=== PATIENT | female | born 1965 | race Caucasian/White ===

== ENCOUNTER 2017-02-10 12:11 | Emergency (ER) | payer OTHER, MEDICARE ==
[~2017-02-10] VITALS: Ht 162.6 cm; Wt 48.0 kg
[~2017-02-10 12:11] MED LIST: B COTAB7 PO; CALC-65 PO; CALC0.5C6 PO; CENTTAB16 PO; CREON24 PO; CYAN100025 IM; DIAZ5TAB PO; DULO60 PO; ESTR30V PV; FOLI1TAB PO; FURO80TA3 PO; KLOR20TA6 PO; LACT10SO27 PO; LORTA10 PO; MAGN400C2 PO; PHYT5TAB2 PO; PROM25TA5 PO; PROT40TA PO; TRAZ150T75 PO; [UNRECOGNIZED DRUG - CODE] PO
[2017-02-10 12:12] VITALS: BP 105/71; PULSE 67; RESP 16; TEMP 97.8; O2SAT 98
[2017-02-10] MEDS ORDERED: IOHEXOL 350 MG/ML 10 ML VIAL (for RAD DIAG) IVCONTRAST ONE (12:12)
[2017-02-10] MEDS ORDERED: LACT10SO PO (15:26)
[2017-02-10] MEDS ORDERED: E 101000 PO (15:26)
[2017-02-10] MEDS ORDERED: [UNRECOGNIZED DRUG - OTHER] PO (15:26)
[2017-02-10] MEDS ORDERED: FOLI800T PO (15:26)
[2017-02-10] MEDS ORDERED: POTA-163 PO (15:26)
[2017-02-10] MEDS ORDERED: CALC0.5C6 PO (15:26)
[2017-02-10] MEDS ORDERED: DIAZ5TAB PO (15:26)
[2017-02-10] MEDS ORDERED: PRAV40TA2 PO (15:26)
[2017-02-10] MEDS ORDERED: ERGO1CAP30 PO (15:26)
[2017-02-10] MEDS ORDERED: PROM25TA10 PO (15:26)
[2017-02-10] MEDS ORDERED: CALC1TAB16 PO (15:26)
[2017-02-10] MEDS ORDERED: COEN1CAP19 PO (15:26)
[2017-02-10] MEDS ORDERED: METO50TA11 PO (15:26)
[2017-02-10] MEDS ORDERED: ASPI81CH (15:26)
[2017-02-10] MEDS ORDERED: ESCI20TA PO (15:26)
[2017-02-10] MEDS ORDERED: FURO1TAB60 PO (15:26)
[2017-02-10] MEDS ORDERED: PANT40TA3 PO (15:26)
[2017-02-10] MEDS ORDERED: HYDR-3583 PO (15:26)
[2017-02-10] MEDS ORDERED: TRAZ50TA12 PO (15:26)
[2017-02-10] MEDS ORDERED: SODIUM CHLOR 0.9% 1000 ML INJ 1,000 ML IV SCH (15:36)
[2017-02-10] MEDS ORDERED: diphenhydrAMINE HCL 50 MG/ML VIAL IV PUSH STA (15:37)
[2017-02-10] MEDS ORDERED: SODIUM CHLORIDE 0.9% FLUSH 10 ML FLUSH IV FLUSH PRN (15:45)
[2017-02-10] MEDS ORDERED: PROCHLORPERAZINE INJ 10 MG/2 ML VIAL IV PUSH ONE (15:45)
--- NOTE | 2017-02-10 15:48 | PD ---
HPI Chief Complaint: Abdominal Pain Time Seen by Provider: 15:05 Travel History International Travel<30 days: No Contact w/Intl Traveler<30days: No Traveled to known affect area: No History of Present Illness HPI So 51 year-old woman who presents to the emergency department complaining of nausea is been ongoing for the past month or so. She went and saw Dr. Claudio today. She is followed with him in the past. She states she's been losing weight niece and her to the emergency department for a CAT scan and for lab work. She had a recent endoscopy which was reportedly unrevealing although they were unable to cannulate her bile ducts and they were apparently looking for choledocholithiasis. She's had her gallbladder out. She is a history of a "duodenal switch "procedure for weight loss. She currently uses Phenergan as needed for nausea, was given a prescription for Tigan today also. History Past Medical History Narrative Medical GERD History of "duodenal switch" in 2004 or so, status post revision complicated by bowel perforation. History of cholecystectomy. Tetanus Vaccination: > 5 Years Influenza Vaccination: Yes Menopausal: Yes : 2 Para: 1 Social History Alcohol Use: No (PT DENIES) Tobacco Use: Yes (PT IS TRYING TO QUIT, LAST PATCH USE 06/06) Allergies-Medications (Allergen,Severity, Reaction): Coded Allergies: Sulfa (Sulfonamide Antibiotics) (Verified Allergy, Severe, Hives, 02/10/17 ) ondansetron (Verified Allergy, Severe, Hives, 02/10/17) bee venom protein (honey bee) (Verified Allergy, Intermediate, HIVES, ) ciprofloxacin (Verified Adverse Reaction, Severe, Hives, 02/10/17) levofloxacin (Verified Adverse Reaction, Severe, Hives, 02/10/17) lorazepam (Verified Adverse Reaction, Severe, ITCHING, 02/10/17) morphine (Verified Adverse Reaction, Severe, HIVES, 02/10/17) oxycodone (Verified Adverse Reaction, Severe, 02/10/17) KARL [employer]A'S SYNDROME sulfamethoxazole (Unverified Adverse Reaction, Severe, Hives, 12/09/16) trimethoprim (Verified Adverse Reaction, Severe, Hives, 02/10/17) Uncoded Allergies: SEVOFLOURINE (Allergy, Severe, Anaphylaxis, 06/09/13) GENERAL ANESTHETIC Reported Meds & Prescriptions Reported Meds & Active Scripts Active Reported [id number] (Vitamin A) 10,000 Unit Cap 1 Cap PO DAILY Escitalopram (Escitalopram Oxalate) 20 Mg Tab 20 Mg PO DAILY Diazepam 5 Mg Tab 5 Mg PO TID PRN Ergocalciferol 50,000 Unit Cap 50,000 Units PO EVERY OTHER DAY Co Q10 (Ubidecarenone) 100 Mg Capsule 1 Tab PO DAILY E 1000 (Vitamin E) 1,000 Unit Cap 1 Tab PO DAILY Calcitriol 0.5 Mcg Cap 0.5 Mcg PO DAILY Metoprolol Succinate ER 24 HR (Metoprolol Succinate) 50 Mg Tab 50 Mg PO DAILY Phenergan (Promethazine HCl) 25 Mg Tablet 25 Mg PO Q6H PRN Pravastatin 40 Mg Tab 40 Mg PO DAILY Lasix (Furosemide) 40 Mg Tab 40 Mg PO DAILY Aspirin 81 Mg Chew 81 Mg ONCE Trazodone (Trazodone HCl) 50 Mg Tab 50 Mg PO HS Calcium Citrate-Vitamin D 315-200 Mg-Unit Tab 1 Tab PO BID Hydrocodone-Acetaminophen 10-325 mg Tab 1 Tab PO Q6H PRN Folic Acid 0.8 Mg Tab 1,000 Mcg PO DAILY Potassium Chloride ER (Potassium Chloride) 20 Meq Tab 20 Meq PO DAILY Lactulose Liq (Lactulose) 10 Gm/15 Ml Soln 30 Ml PO HS Pantoprazole (Pantoprazole Sodium) 40 Mg Tab 40 Mg PO DAILY Review of Systems Except as stated in HPI: all other systems reviewed are Neg Physical Exam Narrative GENERAL: Well-appearing 51 year-old woman, no acute distress. SKIN: Focused skin assessment warm/dry. HEAD: Atraumatic. Normocephalic. EYES: Pupils equal and round. No scleral icterus. No injection or drainage. ENT: No nasal bleeding or discharge. Mucous membranes pink and moist. NECK: Trachea midline. No JVD. CARDIOVASCULAR: Regular rate and rhythm. No murmur appreciated. RESPIRATORY: No accessory muscle use. Clear to auscultation. Breath sounds equal bilaterally. GASTROINTESTINAL: Abdomen is flat and soft. She seems to be volitionally sort of sucking it and also. She has large midline incision. There is no firmness distention or other abnormality. MUSCULOSKELETAL: No obvious deformities. No edema. NEUROLOGICAL: Awake and alert. No obvious cranial nerve deficits. Motor grossly within normal limits. Normal speech. PSYCHIATRIC: Appropriate mood and affect; insight and judgment normal. Data Data Last Documented VS Vital Signs Date Time Temp Pulse Resp B/P (MAP) Pulse Ox O2 Delivery O2 Flow Rate FiO2 02/10/17 15:50 17 99 Room Air 02/10/17 12:12 97.8 67 Orders Orders Complete Blood Count With Diff (02/10/17 15:36) Comprehensive Metabolic Panel (02/10/17 15:36) Lipase (02/10/17 15:36) Urinalysis - C+S If Indicated (02/10/17 15:36) Ct Abd/Pel W Iv Contrast(Rout) (02/10/17 15:36) Iv Access Insert/Monitor (02/10/17 15:36) Ecg Monitoring (02/10/17 15:36) Oximetry (02/10/17 15:36) Sodium Chlor 0.9% 1000 Ml Inj (Ns 1000 M (02/10/17 15:36) Sodium Chloride 0.9% Flush (Ns Flush) (02/10/17 15:45) Prochlorperazine Inj (Compazine Inj) (02/10/17 15:45) Diphenhydramine Inj (Benadryl Inj) (02/10/17 15:37) Oral Contrast - Adult (02/10/17 15:42) Diatrizoate Liq ( Gastroview Liq) (02/10/17 15:53) Urine Culture (02/10/17 15:39) Labs Laboratory Tests Test 02/10/17 15:39 White Blood Count 5.5 TH/MM3 Red Blood Count 5.01 MIL/MM3 Hemoglobin 11.8 GM/DL Hematocrit 37.7 % Mean Corpuscular Volume 75.2 FL Mean Corpuscular Hemoglobin 23.6 PG Mean Corpuscular Hemoglobin Concent 31.4 % Red Cell Distribution Width 18.7 % Platelet Count 183 TH/MM3 Mean Platelet Volume 9.3 FL Neutrophils (%) (Auto) 40.6 % Lymphocytes (%) (Auto) 46.8 % Monocytes (%) (Auto) 8.7 % Eosinophils (%) (Auto) 3.2 % Basophils (%) (Auto) 0.7 % Neutrophils # (Auto) 2.2 TH/MM3 Lymphocytes # (Auto) 2.6 TH/MM3 Monocytes # (Auto) 0.5 TH/MM3 Eosinophils # (Auto) 0.2 TH/MM3 Basophils # (Auto) 0.0 TH/MM3 CBC Comment DIFF FINAL Differential Comment Urine Color LIGHT-YELLOW Urine Turbidity CLEAR Urine pH 7.0 Urine Specific [place] 1.006 Urine Protein NEG mg/dL Urine Glucose (UA) NEG mg/dL Urine Ketones NEG mg/dL Urine Occult Blood NEG Urine Nitrite POS Urine Bilirubin NEG Urine Urobilinogen LESS THAN 2.0 MG/DL Urine Leukocyte Esterase TRACE Urine RBC LESS THAN 1 /hpf Urine WBC 2 /hpf Urine Squamous Epithelial Cells 1 /hpf Urine Bacteria OCC /hpf Microscopic Urinalysis Comment CULTURE INDICATED Blood Urea Nitrogen 11 MG/DL Creatinine 0.96 MG/DL Random Glucose 74 MG/DL Total Protein 6.8 GM/DL Albumin 3.5 GM/DL Calcium Level 9.1 MG/DL Alkaline Phosphatase 101 U/L Aspartate Amino Transf (AST/SGOT) 63 U/L Alanine Aminotransferase (ALT/SGPT) 62 U/L Total Bilirubin 0.3 MG/DL Sodium Level 136 MEQ/L Potassium Level 3.9 MEQ/L Chloride Level 100 MEQ/L Carbon Dioxide Level 31.6 MEQ/L Anion Gap 4 MEQ/L Estimat Glomerular Filtration Rate 61 ML/MIN Lipase 97 U/L [facility] Medical Decision Making Medical Screen Exam Complete: Yes Emergency Medical Condition: Yes Interpretation(s) LABS: CBC is unremarkable. Microcytic indices. CMP with mildly elevated AST and ALT. Lipase is normal. UA is unremarkable. Differential Diagnosis Dehydration, weakness, nausea, failure to thrive, gastritis, gastroparesis, obstruction, mass, other Narrative Course Medical decision-making 51-year-old woman presents to the emergency department complaining of nausea ongoing for several months. History of chronic GI problems also. Complicated surgical history. She looks well. She does appear to be talking her abdomen and were try to examine her which is a little bit bizarre. This disappears with distraction or abdominal contour appears more normal. Nonetheless we'll check labs and CT scan, discharge for outpatient follow-up. Karl Sinha MD Feb 10, 2017 15:48
[2017-02-10 15:50] VITALS: RESP 17; O2SAT 99
[2017-02-10] MEDS ORDERED: DIATRIZOATE MEGLUM/DIATRIZOATE SOD 9 ML CUP ONE (15:53)
[2017-02-10 16:13] LABS: AUTOMATED NEUTROPHIL # 2.2 TH/MM3 (1.8-7.7); BACTERIA, URINE OCC /hpf; BASOPHIL % 0.7 % (0.0-2.0); BLOOD, URINE NEG (NEG); COMMENT (UR) CULTURE INDICATED; CULTURE IF INDICATED CULTURE INDICATED; EOSINOPHIL # 0.2 TH/MM3 (0-0.4); EOSINOPHIL % 3.2 % (0.0-4.0); GLUCOSE,URINE NEG (NEG); HEMATOCRIT 37.7 % (35.0-46.0); HEMO FLAGS DIFF FINAL; KETONE, URINE NEG (NEG); LYMPH % 46.8 % (9.0-44.0); LYMPHOCYTE # 2.6 TH/MM3 (1.0-4.8); MEAN CELL VOLUME 75.2 FL (80.0-100.0); MEAN CORPUSCULAR HEMOGLOBIN 23.6 PG (27.0-34.0); MEAN CORPUSCULAR HGB CONC 31.4 % (32.0-36.0); MONO % 8.7 % (0.0-8.0); NEUT % 40.6 % (16.0-70.0); NITRITE,URINE POS (NEG); PLATELET COUNT 183 TH/MM3 (150-450); RED BLOOD COUNT 5.01 MIL/MM3 (4.00-5.30); RED CELL DISTRIBUTION WIDTH 18.7 % (11.6-17.2); SQUAMOUS EPITHELIAL CELL URINE 1 /hpf (0-5); URINE COLOR LIGHT-YELLOW (YELLW/STRAW); WHITE BLOOD COUNT 5.5 TH/MM3 (4.0-11.0)
[2017-02-10 16:22] LABS: ALT (GPT) 62 U/L (10-53); ANION GAP 4 MEQ/L (5-15); AST (GOT) 63 U/L (15-37); BICARBONATE 31.6 MEQ/L (21.0-32.0); BLOOD UREA NITROGEN 11 MG/DL (7-18); CHLORIDE 100 MEQ/L (98-107); GLOMERULAR FILTRATION RATE 61 ML/MIN (>89); POTASSIUM 3.9 MEQ/L (3.5-5.1); SODIUM (NA) 136 MEQ/L (136-145)
[2017-02-10 16:25] LABS: ALKALINE PHOSPHATASE 101 U/L (45-117); TOTAL BILIRUBIN ADULT 0.3 MG/DL (0.2-1.0)
--- NOTE | 2017-02-10 17:47 | RADRPT ---
EXAM DATE/TIME: 02/10/2017 17:32 [place] COMPARISON: No previous studies available for comparison. INDICATIONS : Diffuse upper abdomen pain for one month. IV CONTRAST: 78 cc Omnipaque 350 (iohexol) IV ORAL CONTRAST: Prescribed oral contrast ingested. RADIATION DOSE: 4.53 CTDIvol (mGy) MEDICAL HISTORY : Cardiovascular disease. Hepatitis B. Renal calculi. SURGICAL HISTORY : Appendectomy. Cholecystectomy.Tubal ligation. ENCOUNTER: Initial ACUITY: 1 month PAIN SCALE: 4/10 LOCATION: Bilateral upper quadrant TECHNIQUE: Volumetric scanning of the abdomen and pelvis was performed. Using automated exposure control and ad justment of the mA and/or kV according to patient size, radiation dose was kept as low as reasonably achievable to obtain optimal diagnostic quality images. DICOM format image data is available electro nically for review and comparison. FINDINGS: The lung base is are clear. There is no pericardial effusion. The spleen is unremarkable. Minimal pancreatic calcifications are evident. There is symmetrical renal function The adrenal glands are unremarkable Region the cecum and terminal ileum are unremarkable Pelvis there is distended bladder. Uterus is small. There is no free air or obstruction Bowel gas pattern is nonspecific most suggestive of an ileus with generalized dilatation of both larg e and small bowel. I do not see inflammatory changes. I do not see free air. CONCLUSION: Nonspecific bowel gas pattern most suggestive of an ileus with dilatation of large and small bowel No pancreatic calcification suggesting previous pancreatitis Evidence for previous mid abdominal surgery I do not see an abscess or free air.. Mayo Rivers MD FACR on February 10, 2017 at 17:43 Board Certified Radiologist. This report was verified electronically.
[2017-02-10] MEDS ORDERED: MACR100C2 PO (18:07)
[2017-02-10] MEDS ORDERED: REGL10TA5 PO (18:07)
--- NOTE | 2017-02-10 18:07 | PD ---
Data Data Last Documented VS Vital Signs Date Time Temp Pulse Resp B/P (MAP) Pulse Ox O2 Delivery O2 Flow Rate FiO2 02/10/17 15:50 17 99 Room Air 02/10/17 12:12 97.8 67 Orders Orders Complete Blood Count With Diff (02/10/17 15:36) Comprehensive Metabolic Panel (02/10/17 15:36) Lipase (02/10/17 15:36) Urinalysis - C+S If Indicated (02/10/17 15:36) Ct Abd/Pel W Iv Contrast(Rout) (02/10/17 15:36) Iv Access Insert/Monitor (02/10/17 15:36) Ecg Monitoring (02/10/17 15:36) Oximetry (02/10/17 15:36) Sodium Chlor 0.9% 1000 Ml Inj (Ns 1000 M (02/10/17 15:36) Sodium Chloride 0.9% Flush (Ns Flush) (02/10/17 15:45) Prochlorperazine Inj (Compazine Inj) (02/10/17 15:45) Diphenhydramine Inj (Benadryl Inj) (02/10/17 15:37) Oral Contrast - Adult (02/10/17 15:42) Diatrizoate Liq ( Gastroview Liq) (02/10/17 15:53) Urine Culture (02/10/17 15:39) Iohexol 350 Inj (Omnipaque 350 Inj) (02/10/17 12:12) Labs Laboratory Tests Test 02/10/17 15:39 White Blood Count 5.5 TH/MM3 Red Blood Count 5.01 MIL/MM3 Hemoglobin 11.8 GM/DL Hematocrit 37.7 % Mean Corpuscular Volume 75.2 FL Mean Corpuscular Hemoglobin 23.6 PG Mean Corpuscular Hemoglobin Concent 31.4 % Red Cell Distribution Width 18.7 % Platelet Count 183 TH/MM3 Mean Platelet Volume 9.3 FL Neutrophils (%) (Auto) 40.6 % Lymphocytes (%) (Auto) 46.8 % Monocytes (%) (Auto) 8.7 % Eosinophils (%) (Auto) 3.2 % Basophils (%) (Auto) 0.7 % Neutrophils # (Auto) 2.2 TH/MM3 Lymphocytes # (Auto) 2.6 TH/MM3 Monocytes # (Auto) 0.5 TH/MM3 Eosinophils # (Auto) 0.2 TH/MM3 Basophils # (Auto) 0.0 TH/MM3 CBC Comment DIFF FINAL Differential Comment Urine Color LIGHT-YELLOW Urine Turbidity CLEAR Urine pH 7.0 Urine Specific [place] 1.006 Urine Protein NEG mg/dL Urine Glucose (UA) NEG mg/dL Urine Ketones NEG mg/dL Urine Occult Blood NEG Urine Nitrite POS Urine Bilirubin NEG Urine Urobilinogen LESS THAN 2.0 MG/DL Urine Leukocyte Esterase TRACE Urine RBC LESS THAN 1 /hpf Urine WBC 2 /hpf Urine Squamous Epithelial Cells 1 /hpf Urine Bacteria OCC /hpf Microscopic Urinalysis Comment CULTURE INDICATED Blood Urea Nitrogen 11 MG/DL Creatinine 0.96 MG/DL Random Glucose 74 MG/DL Total Protein 6.8 GM/DL Albumin 3.5 GM/DL Calcium Level 9.1 MG/DL Alkaline Phosphatase 101 U/L Aspartate Amino Transf (AST/SGOT) 63 U/L Alanine Aminotransferase (ALT/SGPT) 62 U/L Total Bilirubin 0.3 MG/DL Sodium Level 136 MEQ/L Potassium Level 3.9 MEQ/L Chloride Level 100 MEQ/L Carbon Dioxide Level 31.6 MEQ/L Anion Gap 4 MEQ/L Estimat Glomerular Filtration Rate 61 ML/MIN Lipase 97 U/L [facility] Supervised Visit with KIRILL: No Narrative Course The patient was initially evaluated by the previous provider and signed out to me at the beginning of my shift pending CT abdomen pelvis and disposition. See his note for further details. Briefly this is a 51-year-old female with history of duodenal switch complicated by perforated bowel about 6 years ago, here for evaluation of persistent nausea and vomiting over the last month. She has been evaluated by pad hand Dr. Mao, and was advised to present to the emergency department today for lab work and CT abdomen pelvis. Initial vital signs show heart rate 67, blood pressure 105/71, pulse ox 98% on room air, oral temp of 97.8F. CBC shows WBC 5.5, hemoglobin 11.8, hematocrit 37.7, platelets 183. CMP is remarkable for AST 63, ALT 62. Lipase is 97. UA shows positive nitrites, trace leukocyte esterase, occasional bacteria. CT abdomen pelvis: CONCLUSION: Nonspecific bowel gas pattern most suggestive of an ileus with dilatation of large and small bowel No pancreatic calcification suggesting previous pancreatitis Evidence for previous mid abdominal surgery I do not see an abscess or free air.. Patient was made aware of all findings. She was provided Compazine by the previous provider and reports feeling much better. I gave her the option of being admitted to the hospital for further treatment and evaluation, however the patient prefers to be discharged home at this time and will follow up with her pad hand Dr. Mao. I will write her a prescription for Reglan as well as Macrobid to cover for her UTI. She was informed on when to return to the emergency department. She verbalizes understanding and agreement with plan. Diagnosis Primary Impression: Ileus Additional Impressions: UTI (urinary tract infection) Qualified Codes: N39.0 - Urinary tract infection, site not specified Nausea and vomiting Qualified Codes: R11.2 - Nausea with vomiting, unspecified Referrals: [facility] 3 days Primary Care Physician 3 days Additional Instruction: Follow-up with your pad hand this week. Take medications as prescribed. Return to the emergency department for worsening symptoms or any other concerns. Scripts Nitrofurantoin Monohydrate Macrocrystals (Macrobid) 100 Mg Cap 100 MG PO BID for Infection for 5 Days, #10 CAP 0 Refills Prov: Abiodun Bello MD 02/10/17 Metoclopramide (Reglan) 10 Mg Tab 10 MG PO QID for 7 Days, TAB 0 Refills Prov: Abiodun Bello MD 02/10/17 Disposition: 01 DISCHARGE HOME Condition: Stable Abiodun Bello MD Feb 10, 2017 18:07
[2017-02-10 18:16] VITALS: BP 102/77; TEMP 97.8
== END 2017-02-10 18:17 | disposition home or self-care (01) ==
LOC: NEPD 12:11
DX: K56.7 Ileus, unspecified (principal); N39.0 Urinary tract infection, site not specified; R11.2 Nausea with vomiting, unspecified; B96.20 Unspecified Escherichia coli [E. coli] as the cause of diseases classified elsewhere; Z72.0 Tobacco use; Z87.19 Personal history of other diseases of the digestive system
CPT/HCPCS: 74177; 80053; 81001; 83690; 85025; 87077; 87086; 87186; 96361; 96374; 96375; 99284; J0780; J1200; J7030; Q9963; Q9967

== ENCOUNTER 2017-02-19 07:02 | Emergency (ER) | payer OTHER, MEDICARE ==
[~2017-02-19] VITALS: Ht 162.6 cm; Wt 48.0 kg
[~2017-02-19 07:02] MED LIST changes: +ASPI81CH; -B COTAB7 PO; -CALC-65 PO; +CALC1TAB16 PO; -CENTTAB16 PO; +COEN1CAP19 PO; -CREON24 PO; -CYAN100025 IM; -DULO60 PO; +E 101000 PO; +ERGO1CAP30 PO; +ESCI20TA PO; -ESTR30V PV; -FOLI1TAB PO; +FOLI800T PO; +FURO1TAB60 PO; -FURO80TA3 PO; +HYDR-3583 PO; -KLOR20TA6 PO; +LACT10SO PO; -LACT10SO27 PO; -LORTA10 PO; +MACR100C2 PO; -MAGN400C2 PO; +METO50TA11 PO; +PANT40TA3 PO; -PHYT5TAB2 PO; +POTA-163 PO; +PRAV40TA2 PO; +PROM25TA10 PO; -PROM25TA5 PO; -PROT40TA PO; +REGL10TA5 PO; -TRAZ150T75 PO; +TRAZ50TA12 PO; -[UNRECOGNIZED DRUG - CODE] PO; +[UNRECOGNIZED DRUG - OTHER] PO
[2017-02-19 07:06] VITALS: BP 124/74; PULSE 88; RESP 12; TEMP 98.1; O2SAT 100
[2017-02-19 07:25] VITALS: BP 120/82; PULSE 75; RESP 24; O2SAT 97
[2017-02-19] MEDS ORDERED: diphenhydrAMINE HCL 25 MG CAP PO ONE (07:30)
[2017-02-19] MEDS ORDERED: SODIUM CHLORID 0.9% 500 ML INJ 500 ML IV ONE (07:30)
[2017-02-19] MEDS ORDERED: HYDROmorphone HCL PF 1 MG/ML VIAL IV PUSH ONE (07:30)
--- NOTE | 2017-02-19 07:33 | PD ---
HPI Chief Complaint: Abdominal Pain Time Seen by Provider: 07:15 Travel History International Travel<30 days: No Contact w/Intl Traveler<30days: No Traveled to known affect area: No History of Present Illness HPI 51-year-old female presents with progression of her abdominal pain since she was here recently and diagnosed with an ileus and urinary tract infection. She states since that she has been having nonbloody emesis and after taking an enema yesterday was only able to pass small hard kajal of stool. She denies any other concurrent complaints. She denies other modifying factors. Quality of pain is sharp and cramping. Severity is severe per patient. She states she feels like her lupus is also flaring she just feels ill all over. She denies any other concurrent complaints. Location diffuse. PFSH Past Medical History Hx Anticoagulant Therapy: No Anemia: Yes (B12 AND IRON ) Anxiety: Yes Cardiovascular Problems: Yes (CHF, CAD) Chemotherapy: No Congestive Heart Failure: Yes Cerebrovascular Accident: No Diminished Hearing: Yes Gastrointestinal Disorders: Yes (MALABSORPTION) Genitourinary: Yes (UTIs) Hepatitis: Yes (HEP B) Kidney Stones: Yes Psychiatric: Yes Respiratory: No Migraines: Yes ?: Not Menopausal: Yes : 2 Para: 1 : 1 Tubal Ligation: Yes Past Surgical History Abdominal Surgery: Yes (BOWEL RESECTION, DUODENAL SWITCH ) Appendectomy: Yes Cholecystectomy: Yes Gynecologic Surgery: Yes (ABLATION) Hysterectomy: No Tonsillectomy: Yes Other Surgery: Yes (T AND A, LYMPHECTOMPY (L GROIN), ) Social History Alcohol Use: No (PT DENIES) Tobacco Use: Yes Substance Use: No Allergies-Medications (Allergen,Severity, Reaction): Coded Allergies: Sulfa (Sulfonamide Antibiotics) (Verified Allergy, Severe, Hives, 02/19/17 ) ondansetron (Verified Allergy, Severe, Hives, 02/19/17) bee venom protein (honey bee) (Verified Allergy, Intermediate, HIVES, ) iron dextran complex (Verified Allergy, Intermediate, Chest Pain, 02/19/17 ) ciprofloxacin (Verified Adverse Reaction, Severe, Hives, 02/19/17) levofloxacin (Verified Adverse Reaction, Severe, Hives, 02/19/17) lorazepam (Verified Adverse Reaction, Severe, ITCHING, 02/19/17) morphine (Verified Adverse Reaction, Severe, HIVES, 02/19/17) oxycodone (Verified Adverse Reaction, Severe, 02/19/17) ISAMAR SAIRA'S SYNDROME sulfamethoxazole (Unverified Adverse Reaction, Severe, Hives, 02/19/17) trimethoprim (Verified Adverse Reaction, Severe, Hives, 02/19/17) mannitol (Verified Adverse Reaction, Unknown, BACK PAIN, 02/19/17) water for injection,sterile (Verified Adverse Reaction, Unknown, BACK PAIN , 02/19/17) zoledronic acid (Verified Adverse Reaction, Unknown, BACK PAIN, 02/19/17) Uncoded Allergies: SEVOFLOURINE (Allergy, Severe, Anaphylaxis, 06/09/13) GENERAL ANESTHETIC Reported Meds & Prescriptions Reported Meds & Active Scripts Active Prochlorperazine Maleate 5 Mg Tab 5 Mg PO Q6H PRN Reported Flexeril (Cyclobenzaprine HCl) 10 Mg Tab 5 Mg PO TID PRN [id number] (Vitamin A) 10,000 Unit Cap 2 Cap PO DAILY Escitalopram (Escitalopram Oxalate) 20 Mg Tab 20 Mg PO DAILY Diazepam 5 Mg Tab 5 Mg PO TID PRN Ergocalciferol 50,000 Unit Cap 50,000 Units PO EVERY OTHER DAY Co Q10 (Ubidecarenone) 100 Mg Capsule 1 Tab PO DAILY E 1000 (Vitamin E) 1,000 Unit Cap 1 Tab PO DAILY Calcitriol 0.5 Mcg Cap 0.5 Mcg PO BID Metoprolol Succinate ER 24 HR (Metoprolol Succinate) 50 Mg Tab 12.5 Mg PO DAILY Phenergan (Promethazine HCl) 25 Mg Tablet 25 Mg PO BID PRN Pravastatin 40 Mg Tab 20 Mg PO DAILY Lasix (Furosemide) 40 Mg Tab 80 Mg PO DAILY Aspirin 81 Mg Chew 81 Mg ONCE Trazodone (Trazodone HCl) 50 Mg Tab 175 Mg PO HS Calcium Citrate-Vitamin D 315-200 Mg-Unit Tab 2 Tab PO BID Hydrocodone-Acetaminophen 10-325 mg Tab 1 Tab PO Q6H PRN Folic Acid 0.8 Mg Tab 1,000 Mcg PO DAILY Potassium Chloride ER (Potassium Chloride) 20 Meq Tab 60 Meq PO DAILY Lactulose Liq (Lactulose) 10 Gm/15 Ml Soln 30 Ml PO BID Pantoprazole (Pantoprazole Sodium) 40 Mg Tab 40 Mg PO BID Review of Systems Except as stated in HPI: all other systems reviewed are Neg Physical Exam Exam Limitations: Other: (pain) Narrative GENERAL: Well-nourished, well-developed patient. SKIN: Warm and dry. Lupus rash noted to face HEAD: Normocephalic and atraumatic. EYES: No injection or drainage. ENT: No nasal drainage noted. NECK: Supple, trachea midline. CARDIOVASCULAR: Regular rate and rhythm RESPIRATORY: No increased effort. No accessory muscle use. GASTROINTESTINAL: Abdomen soft, diffusely tender no rebound. NEUROLOGICAL: Awake and alert. Moves extremities and sensory grossly within normal limits. Normal speech. Data Data Last Documented VS Vital Signs Date Time Temp Pulse Resp B/P (MAP) Pulse Ox O2 Delivery O2 Flow Rate FiO2 02/19/17 13:35 02/19/17 10:30 61 18 99 Room Air 02/19/17 07:06 98.1 Orders Orders Complete Blood Count With Diff (02/19/17 07:22) Comprehensive Metabolic Panel (02/19/17 07:22) Urinalysis - C+S If Indicated (02/19/17 07:22) Lipase (02/19/17 07:22) Iv Access Insert/Monitor (02/19/17 07:22) Oximetry (02/19/17 07:22) Ct Abd/Pel W Iv Contrast(Rout) (02/19/17 ) Hydromorphone Pf Inj (Dilaudid Pf Inj) (02/19/17 07:30) Diphenhydramine (Benadryl) (02/19/17 07:30) Sodium Chlorid 0.9% 500 Ml Inj (Ns 500 M (02/19/17 07:30) Metoclopramide Inj (Reglan Inj) (02/19/17 07:45) Oral Contrast - Adult (02/19/17 07:38) Diatrizoate Liq ( Gastroview Liq) (02/19/17 07:44) Iohexol 350 Inj (Omnipaque 350 Inj) (02/19/17 09:25) Biliary Quant (W/O Cck) (02/19/17 ) Prochlorperazine Maleate (Compazine) (02/19/17 13:00) Ed Discharge Order (02/19/17 13:18) Labs Laboratory Tests Test 02/19/17 07:35 02/19/17 07:55 White Blood Count 6.1 TH/MM3 Red Blood Count 5.50 MIL/MM3 Hemoglobin 13.4 GM/DL Hematocrit 41.4 % Mean Corpuscular Volume 75.3 FL Mean Corpuscular Hemoglobin 24.4 PG Mean Corpuscular Hemoglobin Concent 32.4 % Red Cell Distribution Width 19.4 % Platelet Count 201 TH/MM3 Mean Platelet Volume 9.8 FL Neutrophils (%) (Auto) 64.8 % Lymphocytes (%) (Auto) 20.8 % Monocytes (%) (Auto) 12.5 % Eosinophils (%) (Auto) 1.0 % Basophils (%) (Auto) 0.9 % Neutrophils # (Auto) 4.0 TH/MM3 Lymphocytes # (Auto) 1.3 TH/MM3 Monocytes # (Auto) 0.8 TH/MM3 Eosinophils # (Auto) 0.1 TH/MM3 Basophils # (Auto) 0.1 TH/MM3 CBC Comment DIFF FINAL Differential Comment Blood Urea Nitrogen 11 MG/DL Creatinine 0.98 MG/DL Random Glucose 79 MG/DL Total Protein 7.7 GM/DL Albumin 3.9 GM/DL Calcium Level 9.9 MG/DL Alkaline Phosphatase 104 U/L Aspartate Amino Transf (AST/SGOT) 53 U/L Alanine Aminotransferase (ALT/SGPT) 55 U/L Total Bilirubin 0.3 MG/DL Sodium Level 135 MEQ/L Potassium Level 3.3 MEQ/L Chloride Level 95 MEQ/L Carbon Dioxide Level 31.0 MEQ/L Anion Gap 9 MEQ/L Estimat Glomerular Filtration Rate 60 ML/MIN Lipase 80 U/L Urine Color LIGHT-YELLOW Urine Turbidity CLEAR Urine pH 7.0 Urine Specific [place] 1.002 Urine Protein NEG mg/dL Urine Glucose (UA) NEG mg/dL Urine Ketones NEG mg/dL Urine Occult Blood NEG Urine Nitrite NEG Urine Bilirubin NEG Urine Urobilinogen LESS THAN 2.0 MG/DL Urine Leukocyte Esterase NEG Urine RBC LESS THAN 1 /hpf Urine WBC 1 /hpf Urine Squamous Epithelial Cells 2 /hpf Urine Renal Epithelial Cells <1 /hpf Urine Bacteria RARE /hpf Microscopic Urinalysis Comment CULT NOT INDICATED MDM Medical Decision Making Medical Screen Exam Complete: Yes Emergency Medical Condition: Yes Medical Record Reviewed: Yes (past history confirm, recent CT with ileus, urine culture pansensitive Escherichia coli) Interpretation(s) CBC & BMP Diagram 10/27/17 07:35 Total Protein 7.7, Albumin 3.9, Calcium Level 9.9, Alkaline Phosphatase 104, Aspartate Amino Transf (AST/SGOT) 53 H, Alanine Aminotransferase (ALT/SGPT) 55 H , Total Bilirubin 0.3 Last 24 hours Impressions Abdomen/Pelvis CT 02/19/17 0000 Signed Impressions: Service Date/Time: Sunday, February 19, 2017 09:13 - CONCLUSION: 1. There has been no significant change in the appearance of the extrahepatic biliary system compared to prior CT scan, now with dilation of the common hepatic duct and common bile duct down to the ampulla. These findings suggest possible distal biliary obstruction. 2. No dilated loops of small bowel. Franklin Jaramillo MD discussed ct with dr Jaramillo and recommends HIDA, if normal can be discharged Differential Diagnosis UTI, renal failure, obstruction, ileus Narrative Course Will check lab work, urinalysis, CT scan abdominal pelvis and dose with small one-time dose of 0.5 mg of Dilaudid. Patient states she needs Benadryl with this so this will be given by mouth ed workup with possible duct dilatation, will discuss with radiology, patient updated, no emesis here hida without emergent process, will discuss with her GI doctor, Patient denies any new complaints and states that they are feeling better. all questions answered. Patient knows that follow up is incumbent on them and to return to the emergency room immediately if new or worsening symptoms develop. Patient given strict return precautions, vitals reviewed and are normal, agrees to further workup as an outpatient. requests compazine which will be provided Physician Communication Physician Communication dr valderrama states ok to de and states to have patient have her upper gi series he ordered if not done yet and follow in the office Diagnosis Primary Impression: Abdominal pain Qualified Codes: R10.84 - Generalized abdominal pain Additional Impression: Constipation Qualified Codes: K59.00 - Constipation, unspecified Referrals: Farrukh Valderrama MD call for appointment Patient Instructions: General Instructions Additional Instructions: return as needed, tylenol as needed Med/Other Pt SpecificInfo: Prescription(s) given Scripts Prochlorperazine Maleate (Prochlorperazine Maleate) 5 Mg Tab 5 MG PO Q6H Y for NAUSEA OR VOMITING, #10 TAB 0 Refills Prov: Geetha Ferrera MD 02/19/17 Disposition: 01 DISCHARGE HOME Condition: Stable Geetha Ferrera MD Feb 19, 2017 07:33
[2017-02-19] MEDS ORDERED: DIATRIZOATE MEGLUM/DIATRIZOATE SOD 9 ML CUP ONE (07:44)
[2017-02-19] MEDS ORDERED: METOCLOPRAMIDE HCL 10 MG/2 ML VIAL IV PUSH ONE (07:45)
[2017-02-19] MEDS ORDERED: CYCL1TAB29 PO (08:14)
[2017-02-19 08:15] LABS: BASOPHIL # 0.1 TH/MM3 (0-0.2); BASOPHIL % 0.9 % (0.0-2.0); EOSINOPHIL # 0.1 TH/MM3 (0-0.4); HEMATOCRIT 41.4 % (35.0-46.0); HEMO FLAGS DIFF FINAL; LYMPH % 20.8 % (9.0-44.0); LYMPHOCYTE # 1.3 TH/MM3 (1.0-4.8); MEAN CELL VOLUME 75.3 FL (80.0-100.0); MEAN CORPUSCULAR HEMOGLOBIN 24.4 PG (27.0-34.0); MEAN CORPUSCULAR HGB CONC 32.4 % (32.0-36.0); MONO % 12.5 % (0.0-8.0); NEUT % 64.8 % (16.0-70.0); PLATELET COUNT 201 TH/MM3 (150-450); RED CELL DISTRIBUTION WIDTH 19.4 % (11.6-17.2); WHITE BLOOD COUNT 6.1 TH/MM3 (4.0-11.0)
[2017-02-19 08:24] LABS: BACTERIA, URINE RARE /hpf; BLOOD, URINE NEG (NEG); COMMENT (UR) CULT NOT INDICATED; CULTURE IF INDICATED CULT NOT INDICATED; GLUCOSE,URINE NEG (NEG); KETONE, URINE NEG (NEG); NITRITE,URINE NEG (NEG); RENAL EPITHELIAL CELLS <1 /hpf; SQUAMOUS EPITHELIAL CELL URINE 2 /hpf (0-5); URINE COLOR LIGHT-YELLOW (YELLW/STRAW)
[2017-02-19 08:28] LABS: ALKALINE PHOSPHATASE 104 U/L (45-117); TOTAL BILIRUBIN ADULT 0.3 MG/DL (0.2-1.0)
[2017-02-19 08:30] VITALS: BP 102/78; PULSE 58; RESP 22; O2SAT 98
[2017-02-19 08:33] LABS: ALT (GPT) 55 U/L (10-53); ANION GAP 9 MEQ/L (5-15); AST (GOT) 53 U/L (15-37); BLOOD UREA NITROGEN 11 MG/DL (7-18); CHLORIDE 95 MEQ/L (98-107); GLOMERULAR FILTRATION RATE 60 ML/MIN (>89); POTASSIUM 3.3 MEQ/L (3.5-5.1); SODIUM (NA) 135 MEQ/L (136-145)
[2017-02-19] MEDS ORDERED: IOHEXOL 350 MG/ML 10 ML VIAL (for RAD DIAG) IVCONTRAST ONE (09:25)
--- NOTE | 2017-02-19 09:44 | RADRPT ---
EXAM DATE/TIME: 02/19/2017 09:13 [facility] COMPARISON: CT ABDOMEN & PELVIS W CONTRAST, February 10, 2017, 17:32. INDICATIONS : Abdominal pain and vomiting. History of ileus. IV CONTRAST: 96 cc Omnipaque 350 (iohexol) IV ORAL CONTRAST: Prescribed oral contrast ingested. RADIATION DOSE: 6.64 CTDIvol (mGy) MEDICAL HISTORY : Renal calculi. Congestive heart failure. SURGICAL HISTORY : Tubal ligation. Colon resection. ENCOUNTER: Initial ACUITY: 1 day PAIN SCALE: 4/10 LOCATION: Bilateral abdomen TECHNIQUE: Volumetric scanning of the abdomen and pelvis was performed. Using automated exposure control and ad justment of the mA and/or kV according to patient size, radiation dose was kept as low as reasonably achievable to obtain optimal diagnostic quality images. DICOM format image data is available electro nically for review and comparison. FINDINGS: LOWER LUNGS: The visualized lower lungs are clear. LIVER: No focal lesions in the liver. There is a changed appearance to the common bile duct and common hepa tic duct when compared to January 2017. Adjacent to the cholecystectomy clips in the emily, the comm on hepatic duct measures 10 mm and the common bile duct in the head of the pancreas measures 10 mm (t he common hepatic duct measured 7 mm and common bile duct measured less than [address]). Ther e is some mild dilation of the central hepatic biliary duct. SPLEEN: Normal size without lesion. PANCREAS: No gross abdomen is seen. The pancreatic duct is discernible, but not dilated. KIDNEYS: Normal in size and shape. There is no mass, stone or hydronephrosis. ADRENAL GLANDS: Within normal limits. VASCULAR: There is no aortic aneurysm. BOWEL/MESENTERY: Oral contrast passes through to the right colon. No dilated loops of small large bowel. Prominent a mount of stool is seen in the left colon and sigmoid. No evidence of free fluid. ABDOMINAL WALL: Within normal limits. RETROPERITONEUM: There is no lymphadenopathy. BLADDER: Moderately distended with smooth margins. No wall thickening or mass. REPRODUCTIVE: Within normal limits. INGUINAL: There is no lymphadenopathy or hernia. MUSCULOSKELETAL: Within normal limits for patient age. CONCLUSION: 1. There has been no significant change in the appearance of the extrahepatic biliary system compared to prior CT scan, now with dilation of the common hepatic duct and common bile duct down to the ampu lla. These findings suggest possible distal biliary obstruction. 2. No dilated loops of small bowel. Franklin Jaramillo MD on February 19, 2017 at 9:28 Board Certified Radiologist. This report was verified electronically.
[2017-02-19 10:30] VITALS: BP 108/70; PULSE 61; RESP 18; O2SAT 99
--- NOTE | 2017-02-19 12:23 | RADRPT ---
EXAM DATE/TIME: 02/19/2017 11:07 [facility] COMPARISON: CT ABDOMEN & PELVIS W CONTRAST, February 19, 2017, 9:13. INDICATIONS : Abdominal pain. DOSE: 4.1 mCi Tc99m Mebrofenin IV MEDICAL HISTORY : Congestive hearrt failure. Coronary artery disease. SURGICAL HISTORY : Tubal ligation. Cholecystectomy. Bowel resection. ENCOUNTER: Initial ACUITY: 1 month PAIN SCALE: 6/10 LOCATION: Right upper quadrant TECHNIQUE: Following the intravenous administration of radiotracer, dynamic sequential images were performed wit h continuous acquisition. FINDINGS: CT scan performed earlier today demonstrated prominent dilation of the common hepatic duct and common bile duct, representing a change from 02/10/17. History of prior cholecystectomy. There is prompt medicine uptake of radiotracer activity seen in the extrahepatic biliary system by 10 minutes. There is normal rate of washout from the hepatic parenchyma. Normal common duct dynamics without evidence of retained activity and without evidence of obstruction. There is prompt passage o f activity into the small bowel. CONCLUSION: Normal rate of biliary excretion without evidence of obstruction. This suggests that the dilated com mon bile duct and common hepatic duct represent a reservoir phenomenon from prior cholecystectomy. Franklin Jaramillo MD on February 19, 2017 at 12:19 Board Certified Radiologist. This report was verified electronically.
[2017-02-19] MEDS ORDERED: PROCHLORPERAZINE MALEATE 5 MG TAB PO ONE (13:00)
[2017-02-19] MEDS ORDERED: PROC5TAB PO (13:17)
== END 2017-02-19 13:40 | disposition home or self-care (01) ==
LOC: NEPE 07:02
DX: R10.84 Generalized abdominal pain (principal); K59.00 Constipation, unspecified; D64.9 Anemia, unspecified; R11.10 Vomiting, unspecified; I50.9 Heart failure, unspecified; Z72.0 Tobacco use
CPT/HCPCS: 74177; 78226; 80053; 81001; 83690; 85025; 96361; 96374; 96375; 99285; A9537; J1170; J2765; J7040; Q0164; Q9963; Q9967